=== PATIENT | female | born 1990 | race Caucasian/White ===

== ENCOUNTER 2017-01-27 09:50 | Inpatient (IN) | payer OTHER ==
[~2017-01-27 09:50] MED LIST: CITRIC ACID/SODIUM CITRATE 30 ML UNIT-DOSE CUP PO ONE; ELECTROLYTE-148 SOLN 1,000 ML IV ONE
[2017-01-27 10:48] VITALS: BMI 35.1
[2017-01-27] MEDS ORDERED: CITRIC ACID/SODIUM CITRATE 30 ML UNIT-DOSE CUP PO ONE (10:54)
--- NOTE | 2017-01-27 10:54 | HP ---
Admitting History and Physical - Admission Chief Complaint: breech History of Present Illness: 26 y/o with breech presentation for cs History Source: Patient Limitations to Obtaining History: No Limitations - Past Medical History FLIGHT AGENT: No: Alzheimer's, CVA, Dementia, Migraine, Multiple Sclerosis, Peripheral Neuropathy, Parkinson's, Seizure, Syncope, TIA, Vertigo, Other Cardiovascular: No: AFIB, Aneurysm, Aortic Insufficiency, Aortic Stenosis, CAD, CHF, Deep Vein Thrombosis, HTN, Hyperlipdemia, KS, Mitral Insufficiency, Mitral Stenosis, Murmur, Pulmonary Hypertension, Other Pulmonary: No: Asthma, Bronchitis, Cancer, COPD, O2 Dependent, Pneumonia, Previously Intubated, Pulmonary Embolus, Pulmonary Fibrosis, Sleep Apnea, Other Gastrointestinal: No: Ascites, Cancer, Constipation, Crohn's Disease, Diverticulitis, Diverticulosis, Esophageal Varices, Gastritis, GERD, GI Bleed, Hemorrhoids, Hiatal Hernia, Inflamatory Bowel Disease, Irritable Bowel Disease, Pancreatitis, Peptic Ulcer Disease, Ulcerative Colitis, Other Hepatobiliary: No: Cirrhosis, Cholelithiasis, Cholecystitis, Choledocholithiasis , Hepatitis A, Hepatitis B, Hepatitis C, Other Renal/: No: Renal Failure, Renal Inusuff, BPH, Cancer, Hematuria, Hemodialysis , Neurogenic Bladder, Renal Calculi, UTI, Other Reproductive: No: Ectopic , Endometriosis, Fibroids, PID, Polycystic Ovary Syndrome, Postmenopausal, Other ...: 3 ...Para: 1 Heme/Onc: No: Anemia, B12 Deficiency, Bleeding Disorder, Cancer, Current Chemotherapy, Current Radiation Therapy, Hemochromatosis, Hypercoaguable State, Myeloproliferative Synd, Sickle Cell Disease, Sickle Cell Trait, Thrombocytopenia, Other Psych: No: Addictions, Anxiety, Bipolar, Depression, Panic, Psychosis, Schizophrenia, Other Musculoskeletal: No: Bursitis, Chronic low back pain, Hemiparesis, Hemiplegia, Osteoarthritis, Paraplegia, Other Rheumatology: No: Fibromyalgia, Gout, Lupus, Rheumatoid Arthritis, Sarcoidosis, Vasculitis, Other ENT: No: Allergic Rhinitis, Sinusitis, Other Endocrine: No: Roseboom's Disease, Tyrell's Disease, Diabetes Insipidus, Diabetes Mellitus, Hyperparathyroidism, Hyperthyroidism, Hypothyroidism, Osteopenia, SIADH, Other - Past Surgical History Past Surgical History: No: None, AAA Repair, AICD, Amputation, Appendectomy, Arthrosocopy, AV Fistula/Graft, Bariatric Surgery, Breast Biopsy, Bypass, CABG, Carotid Endarterectomy, Cataract Removal, Cholecystectomy, Colectomy, Colonoscopy, Colostomy, Craniotomy, , Cystectomy, Hernia Repair, Hysterectomy, Ileal Conduit, Ileosotomy, Joint Replacement, Kidney Transplant, Laminectomy, Liver Transplant, Mastectomy, Nephrectomy, Oopherectomy, Orchiectomy, Permanent Pacemaker, Prostatectomy, Splenectomy, Stent, Thoracotomy , TURP, Tonsillectomy, Tubal Ligation, Upper Endoscopy, Valve Replacement, Vasectomy, Vein Stripping/Ligation - Advance Directives Advance Directives: No: Living Will, Health Care Proxy, DNR, Organ Donor, Tissue Donor, MOLST - Smoking History Smoking history: Never smoked Have you smoked in the past 12 months: No Aproximately how many cigarettes per day: 0 - Alcohol/Substance Use Hx Alcohol Use: No History of Substance Use: denies: None, Cocaine, Heroin, Marijuana, Prescription , Tranquilizers - Social History Usual Living Arrangement: No: Alone, With Spouse, With Parent, With Significant Other, With Child, Assisted Living, [facility], Other Home Medications - Allergies Allergies/Adverse Reactions: Allergies Allergy/AdvReac Type Severity Reaction Status Date / Time No Known Allergies Allergy Verified 01/27/17 10:25 - Home Medications Home Medications: Ambulatory Orders Vit No.130/Iron/FA [ Vitamins] 1 each PO DAILY 11/13/16 Review of Systems - Review of Systems Constitutional: reports: No Symptoms Eyes: reports: No Symptoms HENT: reports: No Symptoms Neck: reports: No Symptoms Cardiovascular: reports: No Symptoms Respiratory: reports: No Symptoms Gastrointestinal: reports: No Symptoms Genitourinary: reports: No Symptoms Breasts: reports: No Symptoms Reported Musculoskeletal: reports: No Symptoms Integumentary: reports: No Symptoms Neurological: reports: No Symptoms Endocrine: reports: No Symptoms Hematology/Lymphatic: reports: No Symptoms Psychiatric: reports: No Symptoms Physical Examination Vital Signs: Vital Signs Temperature 98.0 F 01/27/17 10:39 Pulse Rate 99 H 01/27/17 10:39 Respiratory Rate 18 01/27/17 10:39 Blood Pressure 117/71 01/27/17 10:39 O2 Sat by Pulse Oximetry (%) Constitutional: Yes: Well Nourished Eyes: Yes: WNL HENT: Yes: WNL Neck: Yes: WNL Cardiovascular: Yes: WNL, Bruit Respiratory: Yes: WNL Gastrointestinal: Yes: WNL Renal/: Yes: WNL Breast(s): Yes: WNL Musculoskeletal: Yes: WNL Extremities: Yes: WNL Assessment/Plan as above admit consents labs done
[2017-01-27] MEDS ORDERED: ELECTROLYTE-148 SOLN 1,000 ML IV SCH ×2 (11:00)
[2017-01-27] MEDS ORDERED: ONDANSETRON 4 MG/2 ML VIAL IVPB PRN (11:49)
[2017-01-27] MEDS ORDERED: morphine SULFATE/Preservative Free 0.5 MG/ML (1cc Syringe) EP ONE (11:49)
[2017-01-27] MEDS: IBUPROFEN 800 MG/8 ML IJ IVPB PRN ×2 (14:30→22:50)
[2017-01-27] MEDS: OXYTOCIN 20 UNITS in 0.9% NS 1,000 ML IV SCH (18:06)
[2017-01-28] MEDS: OXYTOCIN 20 UNITS in 0.9% NS 1,000 ML IV SCH (02:30)
[2017-01-28] MEDS: ACETAMINOPHEN 325 MG TABLET (FP) PO PRN ×3 (06:15→16:07)
[2017-01-28] MEDS: IBUPROFEN 800 MG/8 ML IJ IVPB PRN (07:45)
--- NOTE | 2017-01-28 09:34 | PN ---
Post Progress Note - Subjective Subjective: no c/o pain not voided yet since perry is taken out Post Day: 1 Type of Delivery: Primary C/S Vital Signs: Vital Signs Temperature 98.1 F 01/28/17 06:00 Pulse Rate 84 01/28/17 06:00 Respiratory Rate 18 01/28/17 08:00 Blood Pressure 106/65 01/28/17 06:00 O2 Sat by Pulse Oximetry (%) 100 01/27/17 15:30 Breast Exam: Yes: Soft, Other (large pendulous breast , not engorged, plans to BF ). No: Engorged Uterus: Yes: Fundus Firm, Fundus below umbilicus, Non-tender Incision: Yes: Dressing dry and intact. No: Redness, Oozing Abdomen/GI: Yes: Abdomen soft (bs active ), Tolerating PO (clear liquids ). No : Abdominal Distention, Tender, Passing flatus Lochia: Yes: Rubra Lochia, amount: Moderate Extremities: Yes: Calves non-tender, Edema Perineum: Yes: Intact Activity: Other (not oob yet ) Other Findings, Remarks: perry out put 800 ml RS cta Assessment/Plan stable. post op cbc pending encourage ambulation, deep breathing, po fluids
--- NOTE | 2017-01-28 10:47 | PN ---
Progress Note (short form) - Note Progress Note: Anesthesia postop note. S/P . POD#1. Pat seen and examined. VSS. No apparent post anesthesia complications. Signed off.
[2017-01-28 15:24] LABS: BASOPHIL 0.4 % (0-2.0); EOSINOPHIL 0.4 % (0-4.5); MCH 29.4 pg (25.7-33.7); MEAN CELL VOLUME 89.2 fl (80-96); NEUTROPHILS 74.5 % (42.8-82.8); PLATELET COUNT 205 K/MM3 (134-434); RDW 14.9 % (11.6-15.6); WHITE BLOOD COUNT 10.6 K/mm3 (4.0-10.0)
[2017-01-28] MEDS: oxyCODONE HCL 5 MG TABLET PO PRN ×2 (16:07→20:25)
[2017-01-28] MEDS: SIMETHICONE 80 MG TAB.CHEW (FP) PO PRN ×2 (16:07→20:22)
[2017-01-28] MEDS: IBUPROFEN 600 MG TABLET (FP) PO PRN (20:22)
[2017-01-29] MEDS: SIMETHICONE 80 MG TAB.CHEW (FP) PO PRN ×4 (05:52→21:11)
[2017-01-29] MEDS: IBUPROFEN 600 MG TABLET (FP) PO PRN ×4 (05:53→21:12)
[2017-01-29] MEDS: ACETAMINOPHEN 325 MG TABLET (FP) PO PRN ×4 (05:53→21:11)
--- NOTE | 2017-01-29 06:35 | PN ---
Post Progress Note Type of Delivery: Primary C/S Vital Signs: Vital Signs Temperature 98.0 F 01/28/17 20:29 Pulse Rate 84 01/28/17 20:29 Respiratory Rate 20 01/28/17 20:29 Blood Pressure 126/75 01/28/17 20:29 O2 Sat by Pulse Oximetry (%) 100 01/27/17 15:30 Breast Exam: Yes: Soft Uterus: Yes: Fundus below umbilicus Incision: Yes: Dressing dry and intact Abdomen/GI: Yes: Abdomen soft Lochia: Yes: Rubra Lochia, amount: Small Extremities: Yes: Calves non-tender Perineum: Yes: Intact Activity: Ambulating - Labs Labs: CBC WBC 10.6 K/mm3 (4.0-10.0) H 01/28/17 14:00 RBC 3.33 M/mm3 (3.60-5.2) L 01/28/17 14:00 Hgb 9.8 GM/dL (10.7-15.3) L D 01/28/17 14:00 Hct 29.8 % (32.4-45.2) L 01/28/17 14:00 MCV 89.2 fl (80-96) 01/28/17 14:00 MCHC 33.0 g/dl (32.0-36.0) 01/28/17 14:00 RDW 14.9 % (11.6-15.6) 01/28/17 14:00 Plt Count 205 K/MM3 (134-434) 01/28/17 14:00 MPV 9.0 fl (7.5-11.1) D 01/28/17 14:00 Neutrophils % 74.5 % (42.8-82.8) 01/28/17 14:00 Lymphocytes % 19.0 % (8-40) D 01/28/17 14:00 Monocytes % 5.7 % (3.8-10.2) 01/28/17 14:00 Eosinophils % 0.4 % (0-4.5) 01/28/17 14:00 Basophils % 0.4 % (0-2.0) 01/28/17 14:00 Assessment/Plan oob desires dc tomorrow check labs
[2017-01-29] MEDS ORDERED: DIPHTH,PERTUSS(ACELL),TET 0.5 ML DISP.SYRIN IM ONE (10:00)
[2017-01-29 21:15] VITALS: BP 118/74; TEMP 98
[2017-01-30] MEDS: SIMETHICONE 80 MG TAB.CHEW (FP) PO PRN ×2 (01:48→08:35)
[2017-01-30] MEDS: ACETAMINOPHEN 325 MG TABLET (FP) PO PRN ×2 (01:48→08:35)
[2017-01-30] MEDS: IBUPROFEN 600 MG TABLET (FP) PO PRN ×2 (01:49→08:36)
[2017-01-30 08:30] LABS: BASOPHIL 0.4 % (0-2.0); EOSINOPHIL 1.6 % (0-4.5); MCH 29.6 pg (25.7-33.7); MCHC 33.4 g/dl (32.0-36.0); MEAN CELL VOLUME 88.8 fl (80-96); MEAN PLT VOLUME 8.1 fl (7.5-11.1); NEUTROPHILS 67.4 % (42.8-82.8); PLATELET COUNT 203 K/MM3 (134-434); RDW 15.1 % (11.6-15.6); WHITE BLOOD COUNT 8.2 K/mm3 (4.0-10.0)
[2017-01-30 09:29] VITALS: PULSE 70
--- NOTE | 2017-01-30 12:03 | PN ---
Progress Note (short form) - Note Progress Note: s/p c/s doing well, no c/o CBC, BMP 01/30/17 07:40 Last Vital Signs Temp Pulse Resp BP Pulse Ox 98.0 F 70 20 118/74 100 01/30/17 09:26 01/30/17 09:26 01/30/17 09:26 01/30/17 09:26 01/27/17 15:30 abdomen soft, no distension, incision dry, clean no calf tenderness plan d/c home, rtc 1 week
--- NOTE | 2017-02-04 13:42 | PATH ---
Surgical Pathology Report Patient Name: PILI BECKWITH [facility]. Rec. #: [id number] /Age/Gender: 1990 (Age: 26) / F Account: [id number] Location: [facility] OBS/FAITH HEALER Taken: 01/28/2017 Received: 01/28/2017 Reported: 02/04/2017 Physicians: Nick Baum M.D. 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 Electronically Signed David Willard M.D. Gross Description The specimen is received fresh labeled placenta and is a 550 gram, 16.5 x 15.0 x 3.4 cm. placenta with attached membranes and umbilical cord. The attached membranes are lemus, translucent with focal opacities and insert marginally. The umbilical cord measures 22 cm. in length and averages 1.2 cm. in diameter. The cord inserts eccentrically, 2.5 cm. to the nearest margin. No true knots or strictures are identified. Cut surface of the umbilical cord reveals 3 vessels. The surface is lawrence blue with moderate fibrin deposition and appropriate caliber vessels. The maternal surface is red-brown with focal defects. Sectioning reveals red-brown, spongy parenchyma. No lesions are identified. Supervisor sections are submitted in three cassettes as follows: 1- membrane rolls and umbilical cord; 2-3- full thickness sections of placenta. 02/03/2017 [facility]02/03/2017
== END 2017-01-30 11:00 | disposition home or self-care (01) | DRG 540 ==
LOC: JLDR 09:50 → J3W 01-28 14:27
PROVIDERS: ADMIT Obstetrics & Gynecology; ATTEND Obstetrics & Gynecology
PROC: 10D00Z1 Extraction of Products of Conception, Low, Open Approach (ICD-10-PCS; principal; 2017-01-27)
DX: O32.1XX0 Maternal care for breech presentation, not applicable or unspecified (principal); Z3A.39 39 weeks gestation of pregnancy; Z37.0 Single live birth
CPT/HCPCS: 36415; 85025; 86593; 88307-TC

== ENCOUNTER 2017-03-16 17:39 | Emergency (ER) | payer OTHER ==
[2017-03-16 17:46] VITALS: BP 109/70; PULSE 96; TEMP 98.5; BMI 31.9
[2017-03-16] MEDS ORDERED: CEPHALEXIN MONOHYDRATE 500 MG CAPSULE (UD) PO ONE (19:31)
[2017-03-16] MEDS ORDERED: IBUPROFEN 600 MG TABLET (FP) PO ONE ×2 (19:31→19:42)
--- NOTE | 2017-03-16 19:35 | PDOC ---
History of Present Illness - General Chief Complaint: Pain Stated Complaint: VAGINAL BLEEDING Time Seen by Provider: 03/16/17 18:53 History Source: Patient Exam Limitations: No Limitations - History of Present Illness Initial Comments: 03/16/17 19:35 My chief complaint: Tenderness and redness along scar from 01/28/2017 History of present illness: Patient is a 26-year-old female with history of iron deficiency anemia here today complaining of tenderness and redness along C- section scar for the last 5 days. Patient had a here on 01/28/2017. Patient denies any fever. Patient reports that area is very tender to touch and is currently a 7 out of 10. Patient denies breast-feeding. Patient saw LOG HAULER one any half weeks ago everything was fine at that time. Timing/Duration: getting worse Severity: mild Associated Symptoms: reports: other (redness along C Section site with tenderness) Past History - Past Medical History Allergies/Adverse Reactions: Allergies Allergy/AdvReac Type Severity Reaction Status Date / Time No Known Allergies Allergy Verified 03/16/17 17:41 Home Medications: Ambulatory Orders Vit No.130/Iron/FA [ Tablet] 1 each PO DAILY 11/13/16 Ibuprofen [Motrin -] 600 mg PO TID #21 tablet 01/29/17 Cephalexin Monohydrate [Keflex -] 500 mg PO BID #19 capsule 03/16/17 Anemia: Yes (iron deficiency ) Asthma: No Cancer: No Cardiac Disorders: No Diabetes: No HTN: No Seizures: No Thyroid Disease: No Other medical history: none - Psycho/Social/Smoking Cessation Hx Anxiety: No Suicidal Ideation: No Smoking Status: No Smoking History: Never smoked Have you smoked in the past 12 months: No Number of Cigarettes Smoked Daily: 0 Information on smoking cessation initiated: No Hx Alcohol Use: No Drug/Substance Use Hx: No Substance Use Type: None Hx Substance Use Treatment: No Review of Systems - Review of Systems Able to Perform ROS?: Yes Constitutional: No: Symptoms Reported HEENTM: No: Symptoms Reported Respiratory: No: Symptoms reported Cardiac (ROS): No: Symptoms Reported ABD/GI: No: Symptoms Reported : No: Symptoms Reported Musculoskeletal: No: Symptoms Reported Integumentary: Yes: Erythema (along C section scar getting worse 5 days with tenderness of area) Neurological: No: Symptoms reported *Physical Exam - Vital Signs Last Vital Signs Temp Pulse Resp BP Pulse Ox 98.5 F 96 H 18 109/70 100 03/16/17 17:42 03/16/17 17:42 03/16/17 17:42 03/16/17 17:42 03/16/17 17:42 - Physical Exam General Appearance: Yes: Appropriately Dressed Respiratory/Chest: positive: Lungs Clear, Normal Breath Sounds. negative: Chest Tender, Respiratory Distress Cardiovascular: positive: Regular Rhythm, Regular Rate, S1, S2 Gastrointestinal/Abdominal: positive: Normal Bowel Sounds, Tender (along left side of C section scar ), Soft. negative: Organomegaly, Increased Bowel Sounds , Distended, Guarding, Rebound, Hernia, Hepatomegaly, Spleenomegaly Integumentary: positive: Erythema (along C section scar 10 cm width x 4 cm, no fluculance, no pointing, no palpable masss, no discharge) Neurologic: positive: Alert, Normal Response, Responsive Medical Decision Making - Medical Decision Making 03/16/17 19:37 Patient is a 26-year-old female with history of iron deficiency anemia here today complaining of tenderness and redness along scar for the last 5 days. Patient had a here on 01/28/2017. Patient denies any fever. Patient reports that area is very tender to touch and is currently a 7 out of 10. Patient denies breast-feeding. Patient saw LOG HAULER one any half weeks ago everything was fine at that time. Cellulitis extending from C section PLAN: consult with Dr. Baum he recommended keflex 500 mg bid for 10 days ibuprofen 600 mg po now follow up with drafter assistant as soon as possible *DC/Admit/Observation/Transfer Diagnosis at time of Disposition: Cellulitis of abdominal wall - Discharge Dispostion Disposition: HOME Condition at time of disposition: Stable - Patient Instructions Additional Instructions: Follow up with your shipping lead person within the next few days Return to emergency room if any fever or increased redness of area on your abdomen involved or chills worsening pain Take ibuprofen as needed as directed by planning intern for pain Patient voiced understanding of discharge instructions and all questions were answered Antonia un seguimiento con gavin gineclogo en los prximos dobson Vuelva a la juan jose de emergencias si hay fiebre o aumento del enrojecimiento del lalito del abdomen o escalofros que empeoran el dolor [place] ibuprofeno segn sea necesario segn las instrucciones del fabricante para el dolor Comprensin del paciente sobre las instrucciones de jerry y todas las preguntas fueron contestadas
[2017-03-16] MEDS ORDERED: CEPHALEXIN MONOHYDRATE 500 MG CAPSULE (UD) ONE (19:43)
== END 2017-03-16 20:18 | disposition home or self-care (01) ==
LOC: JERFT 17:39
DX: O86.0 Infection of obstetric surgical wound (principal)
CPT/HCPCS: 99281-25

== ENCOUNTER → 2017-03-17 | Emergency (ER) | payer OTHER ==
[~2017-03-17] MED LIST changes: -CITRIC ACID/SODIUM CITRATE 30 ML UNIT-DOSE CUP PO ONE; -ELECTROLYTE-148 SOLN 1,000 ML IV ONE; +ONDANSETRON 4 MG/2 ML VIAL IVPB ONE; +ONDANSETRON 4 MG/2 ML VIAL ONE; +PIPERACILLIN/TAZOB 3.375 GM 50 ML IVPB ONE; +PIPERACILLIN/TAZOB 3.375 GM/50 ML PRE-DOCKED IV ONE; +morphine CARPU-JECT 4 MG/1 ML DISP.SYRIN IVPUSH ONE; +morphine CARPU-JECT 4 MG/1 ML DISP.SYRIN ONE
[2017-03-17 17:58] VITALS: TEMP 98.5; BMI 31.9
[2017-03-17 19:16] LABS: BASOPHIL 0.2 % (0-2.0); MCH 27.6 pg (25.7-33.7); MCHC 32.4 g/dl (32.0-36.0); MEAN CELL VOLUME 85.2 fl (80-96); MEAN PLT VOLUME 7.8 fl (7.5-11.1); NEUTROPHILS 78.5 % (42.8-82.8); PLATELET COUNT 208 K/MM3 (134-434); RDW 15.1 % (11.6-15.6); WHITE BLOOD COUNT 13.2 K/mm3 (4.0-10.0)
[2017-03-17 19:29] LABS: INR 1.16 (0.82-1.09); PROTHROMBIN TIME (PATIENT) 12.8 SEC (9.98-11.88)
[2017-03-17 19:32] LABS: ACTIVATED PTT 33.4 SECONDS (26.9-34.4)
[2017-03-17 19:40] LABS: ALBUMIN 3.7 g/dl (3.4-5.0); ANION GAP 10 (8-16); BILIRUBIN,TOTAL 0.3 mg/dL (0.2-1.0); CALCIUM 9.1 mg/dL (8.5-10.1); CO2 25 mmol/L (21-32); CREATININE 0.6 mg/dL (0.55-1.02); GLUCOSE,RANDOM 80 mg/dL (74-106); SGOT/AST 28 U/L (15-37); SGPT/ALT 51 U/L (12-78); TOT PROT 7.5 g/dl (6.4-8.2)
[2017-03-17 19:42] LABS: ALK PHOS 113 U/L (45-117); TROPONIN I < 0.02 ng/ml (0.00-0.05)
--- NOTE | 2017-03-17 19:48 | PDOC ---
*Physical Exam - Vital Signs Last Vital Signs Temp Pulse Resp BP Pulse Ox 98.5 F 98 H 19 122/63 98 03/17/17 17:56 03/17/17 17:56 03/17/17 17:56 03/17/17 17:56 03/17/17 17:56 ED Treatment Course - LABORATORY CBC & Chemistry Diagram: 03/17/17 18:49 03/17/17 18:49 - ADDITIONAL ORDERS Additional order review: Laboratory Results 03/17/17 18:49 INR 1.16 H PTT (Actin FS) 33.4 03/17/17 18:49 RBC 4.10 D MCV 85.2 MCHC 32.4 RDW 15.1 MPV 7.8 Neutrophils % 78.5 Lymphocytes % 15.6 D Monocytes % 4.7 Eosinophils % 1.0 Basophils % 0.2 Medical Decision Making - Medical Decision Making 03/17/17 19:44 agree with care from MATHEMATICAL STATISTICIAN Rigo *DC/Admit/Observation/Transfer Diagnosis at time of Disposition: Cellulitis of abdominal wall - Discharge Dispostion Disposition: HOME - Prescriptions Prescriptions: Bacitracin - [Bacitracin Topical Ointment -] 1 applic TP BID #1 tube Clindamycin [Cleocin -] 300 mg PO Q6HPO #40 capsule Oxycodone HCl/Acetaminophen [Oxycodone-Acetaminophen 5-325] 1 each PO Q4H PRN # 12 tablet MDD 6 tabs PRN Reason: Severe Pain - Patient Instructions Printed Discharge Instructions: DI for Wound Infection Additional Instructions: Antonia un seguimiento con gavin obstetra / gineclogo que realiz la seccin C para la re-evaluacin para asegurarse de que la infeccin est mejorando. Si los s ntomas empeoran o si cualquier preocupacin regresa para dahlia evaluacin posterior. Percocet para el dolor segn sea necesario. No conduzca, goran alcohol ni opere maquinaria pesada mientras est tomando Percocet. Clindamicina para la infeccin. Limpie el lalito con agua tibia de jabn, aplique bacitracina y luego gasifique con cinta adhesiva. Usted puede comprar estos artculos en la farmacia local. Usted debe seguir con OB / [facility]ER dentro de 48-72 horas. Si usted desarrolla fiebre, dificultad para respirar, escalofros, dolor creciente regresa de inmediato. Follow up with your COLLEGE OR UNIVERSITY FACULTY MEMBER that performed for re-evaluation to make sure infection is getting better. If symptoms worsen or any concerns return for further evaluation. Percocet for pain as needed. Do not drive, drink alcohol, or operate heavy machinery while taking Percocet. Clindamycin for infection. Clean area with warm soap water, apply bacitracin and then gauze with tape. You can buy these items at local pharmacy. You must follow up with COLLEGE OR UNIVERSITY FACULTY MEMBER within 48- 72 hours. If you develop fever, trouble breathing, chills, increasing pain return right away. No tome estos medicamentos mientras amamanta. Asegrese de bombear antes de bala los medicamentos. Do not take these medications while . Be sure to pump prior to taking medications. Print Language: KAZAKH - Post Discharge Activity Work/School Note: Back to Work
[2017-03-17 20:43] LABS: URINE APPEARANCE CLEAR; URINE BILIRUBIN NEGATIVE (NEGATIVE); URINE BLOOD NEGATIVE (NEGATIVE); URINE COLOR STRAW; URINE GLUCOSE (UA) NEGATIVE (NEGATIVE); URINE KETONE NEGATIVE (NEGATIVE); URINE LEUK ESTERASE NEGATIVE (NEGATIVE); URINE NITRITE NEGATIVE (NEGATIVE); URINE PROTEIN NEGATIVE (NEGATIVE); URINE UROBILINOGEN NEGATIVE E.U./dl (0.2-1.0)
--- NOTE | 2017-03-17 22:03 | PDOC ---
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 Patient reports done 2 months ago and has been taking care of site. However, recently began experiencing pain, redness, drainage. She denies any other complaints at this time. Timing/Duration: getting worse Severity: moderate Modifying Factors: worse with: cold therapy, eating, immobilization, medication , movement, rest, other Associated Symptoms: denies: denies symptoms, chest pain, cough, diaphoresis, fever/chills, headaches, loss of appetite, malaise, nausea/vomiting, rash, seizure, shortness of breath, syncope, weakness, other Past History - Travel Traveled outside of the country in the last 30 days: No Close contact w/someone who was outside of country & ill: No - Past Medical History Allergies/Adverse Reactions: Allergies Allergy/AdvReac Type Severity Reaction Status Date / Time No Known Allergies Allergy Verified 03/17/17 17:59 Home Medications: Ambulatory Orders Bacitracin - [Bacitracin Topical Ointment -] 1 applic TP BID #1 tube 03/17/17 Cephalexin [Keflex] 500 mg PO BID 03/17/17 Clindamycin [Cleocin -] 300 mg PO Q6HPO #40 capsule 03/17/17 Oxycodone HCl/Acetaminophen [Oxycodone-Acetaminophen 5-325] 1 each PO Q4H PRN # 12 tablet MDD 6 tabs 03/17/17 Anemia: Yes (iron deficiency ) Asthma: No Cancer: No Cardiac Disorders: No Diabetes: No HTN: No Seizures: No Thyroid Disease: No - Psycho/Social/Smoking Cessation Hx Anxiety: No Suicidal Ideation: No Smoking Status: No Smoking History: Never smoked Have you smoked in the past 12 months: No Number of Cigarettes Smoked Daily: 0 Hx Alcohol Use: No Drug/Substance Use Hx: No Substance Use Type: None Hx Substance Use Treatment: No Review of Systems - Review of Systems Able to Perform ROS?: Yes Is the patient limited Tajik proficient: No Constitutional: No: Chills, Fever Integumentary: Yes: Erythema, Other (Pain, Tenderness, drainage) All Other Systems: Reviewed and Negative *Physical Exam - Vital Signs Last Vital Signs Temp Pulse Resp BP Pulse Ox 98.5 F 98 H 19 122/63 98 03/17/17 17:56 03/17/17 17:56 03/17/17 17:56 03/17/17 17:56 03/17/17 17:56 - Physical Exam General Appearance: Yes: Nourished, Appropriately Dressed, Mild Distress (On examination). No: Apparent Distress, Moderate Distress, Severe Distress Neck: positive: Trachea midline, Supple. negative: Decreased range of motion, Stridor, Lymphadenopathy (R), Lymphadenopathy (L) Respiratory/Chest: positive: Lungs Clear, Normal Breath Sounds. negative: Chest Tender, Respiratory Distress, Accessory Muscle Use, Labored Respiration, Rapid RR, Rales, Rhonchi, Stridor, Wheezing Cardiovascular: positive: Regular Rhythm, Regular Rate Gastrointestinal/Abdominal: positive: Normal Bowel Sounds, Tender (At site of infection), Soft. negative: Distended, Guarding, Rebound, Tenderness, Hernia Musculoskeletal: positive: Normal Inspection. negative: CVA Tenderness Extremity: positive: Normal Capillary Refill, Normal Inspection, Normal Range of Motion. negative: Pedal Edema, Swelling, Calf Tenderness, Erythema, Inflammation Integumentary: positive: Normal Color, Dry, Warm, Erythema, Swelling (Mild ), Other (+ Tenderness with active drainage of purulent fluid.). 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 II-XII NML intact, Fully Oriented, Alert, Normal Mood/ Affect, Normal Response, Motor Strength /5 ED Treatment Course - LABORATORY CBC & Chemistry Diagram: 03/17/17 18:49 03/17/17 18:49 - ADDITIONAL ORDERS Additional order review: Laboratory Results 03/17/17 03/17/17 03/17/17 20:27 18:57 18:49 INR PTT (Actin FS) Sodium Potassium Chloride Carbon Dioxide Anion Gap BUN Creatinine Creat Clearance w eGFR Random Glucose Lactic Acid 0.6 Calcium Total Bilirubin AST ALT Alkaline Phosphatase Creatine Kinase Troponin I Total Protein Albumin Urine Color Straw Urine Appearance Clear Urine pH 6.0 Urine Protein Negative Urine Glucose (UA) Negative Urine Ketones Negative Urine Blood Negative Urine Nitrite Negative Urine Bilirubin Negative Urine Urobilinogen Negative Ur Leukocyte Esterase Negative Blood Type A POSITIVE Antibody Screen Negative 03/17/17 03/17/17 18:49 18:49 INR 1.16 H PTT (Actin FS) 33.4 Sodium 140 Potassium 3.7 Chloride 105 Carbon Dioxide 25 Anion Gap 10 BUN 18 D Creatinine 0.6 Creat Clearance w eGFR > 60 Random Glucose 80 Lactic Acid Calcium 9.1 Total Bilirubin 0.3 D AST 28 D ALT 51 D Alkaline Phosphatase 113 D Creatine Kinase 94 Troponin I < 0.02 Total Protein 7.5 Albumin 3.7 D Urine Color Urine Appearance Urine pH Urine Protein Urine Glucose (UA) Urine Ketones Urine Blood Urine Nitrite Urine Bilirubin Urine Urobilinogen Ur Leukocyte Esterase Blood Type Antibody Screen 03/17/17 18:49 RBC 4.10 D MCV 85.2 MCHC 32.4 RDW 15.1 MPV 7.8 Neutrophils % 78.5 Lymphocytes % 15.6 D Monocytes % 4.7 Eosinophils % 1.0 Basophils % 0.2 - Medications Given in the ED: ED Medications Discontinued Medications Generic Name Dose Route Start Last Admin Trade Name Freq PRN Reason Stop Dose Admin Morphine Sulfate 4 mg 03/17/17 19:39 03/17/17 20:20 Morphine Injection - IVPUSH 03/17/17 19:40 4 mg ONCE ONE Administration Ondansetron HCl 4 mg 03/17/17 19:39 03/17/17 20:20 Zofran Injection IVPB 03/17/17 19:40 4 mg ONCE ONE Administration Piperacillin Sod/Tazobactam Sod 3.375 gm 03/17/17 19:46 03/17/17 20:20 Zosyn 3.375gm Ivpb (Pre-Docked) IV 03/17/17 19:47 3.375 gm ONCE ONE Administration Protocol *DC/Admit/Observation/Transfer Diagnosis at time of Disposition: Cellulitis of abdominal wall - Discharge Dispostion Disposition: HOME Condition at time of disposition: Stable Admit: No - Prescriptions Prescriptions: Bacitracin - [Bacitracin Topical Ointment -] 1 applic TP BID #1 tube Clindamycin [Cleocin -] 300 mg PO Q6HPO #40 capsule Oxycodone HCl/Acetaminophen [Oxycodone-Acetaminophen 5-325] 1 each PO Q4H PRN # 12 tablet MDD 6 tabs PRN Reason: Severe Pain - Patient Instructions Printed Discharge Instructions: DI for Wound Infection Additional Instructions: Antonia un seguimiento con gavin obstetra / gineclogo que realiz la seccin C para la re-evaluacin para asegurarse de que la infeccin est mejorando. Si los s ntomas empeoran o si cualquier preocupacin regresa para dahlia evaluacin posterior. Percocet para el dolor segn sea necesario. No conduzca, goran alcohol ni opere maquinaria pesada mientras est tomando Percocet. Clindamicina para la infeccin. Limpie el lalito con agua tibia de jabn, aplique bacitracina y luego gasifique con cinta adhesiva. Usted puede comprar estos artculos en la farmacia local. Usted debe seguir con OB / CAN WASHER dentro de 48-72 horas. Si usted desarrolla fiebre, dificultad para respirar, escalofros, dolor creciente regresa de inmediato. Follow up with your SYNCHRONIZER that performed for re-evaluation to make sure infection is getting better. If symptoms worsen or any concerns return for further evaluation. Percocet for pain as needed. Do not drive, drink alcohol, or operate heavy machinery while taking Percocet. Clindamycin for infection. Clean area with warm soap water, apply bacitracin and then gauze with tape. You can buy these items at local pharmacy. You must follow up with SYNCHRONIZER within 48- 72 hours. If you develop fever, trouble breathing, chills, increasing pain return right away. No tome estos medicamentos mientras amamanta. Asegrese de bombear antes de bala los medicamentos. Do not take these medications while . Be sure to pump prior to taking medications. Print Language: AZERI - Post Discharge Activity Work/School Note: Back to Work
[2017-03-17 22:51] VITALS: BP 101/71; PULSE 85
--- NOTE | 2017-03-18 10:43 | EKG ---
Test Reason : Blood Pressure : / mmHG Vent. Rate : 084 BPM Atrial Rate : 084 BPM P-R Int : 166 ms QRS Dur : 086 ms QT Int : 364 ms P-R-T Axes : 042 064 042 degrees QTc Int : 430 ms NORMAL SINUS RHYTHM NORMAL ECG NO PREVIOUS ECGS AVAILABLE Confirmed by KIA BUTLER, SAMIR ([id number]) on 03/18/2017 10:42:45 AM Referred By: Confirmed By:SAMIR ADAM MD
== END | disposition home or self-care (01) ==
LOC: JER 17:49
PROC: 3E03329 Introduction of Other Anti-infective into Peripheral Vein, Percutaneous Approach (ICD-10-PCS; principal; 2017-03-17)
PROC: 3E033GC Introduction of Other Therapeutic Substance into Peripheral Vein, Percutaneous Approach (ICD-10-PCS; 2017-03-17)
PROC: 3E033NZ Introduction of Analgesics, Hypnotics, Sedatives into Peripheral Vein, Percutaneous Approach (ICD-10-PCS; 2017-03-17)
DX: O86.0 Infection of obstetric surgical wound (principal); L03.311 Cellulitis of abdominal wall
CPT/HCPCS: 36415; 71010-TC; 80053; 81003; 82550; 83605; 84484; 85025; 85610; 85730; 86850; 86900; 86901; 87040; 87070; 87086; 87186; 87205; 93005; 93010; 96374; 96375; 99283-25

== ENCOUNTER 2021-01-02 14:59 | Emergency (ER) | payer OTHER ==
[2021-01-02 15:23] VITALS: BP 111/72; PULSE 72; TEMP 97.2; BMI 32.1
[2021-01-02 16:52] LABS: BASO % 0.7 % (0-2.0); EOS % 2.5 % (0-4.5); LYMPH % 33.2 % (8-40); MCH 30.2 pg (25.7-33.7); MCHC 33.4 g/dl (32.0-36.0); MEAN CELL VOLUME 90.2 fl (80-96); MEAN PLT VOLUME 8.6 fl (7.5-11.1); MONO % 7.4 % (3.8-10.2); NEUT % 56.2 % (42.8-82.8); PLATELET COUNT 216 K/MM3 (134-434); RBC 3.99 M/mm3 (3.60-5.2); RDW 13.1 % (11.6-15.6); WHITE BLOOD COUNT 7.6 K/mm3 (4.0-10.0)
[2021-01-02 17:09] LABS: CHLORIDE 106 mmol/L (98-107); SODIUM 140 mmol/L (136-145)
[2021-01-02 17:12] LABS: ALBUMIN 3.8 g/dl (3.4-5.0); ANION GAP 7 MMOL/L (8-16); BLOOD UREA NITROGEN 11.4 mg/dL (7-18); CO2 27 mmol/L (21-32); GLUCOSE,RANDOM 70 mg/dL (74-106); LIPASE 84 U/L (73-393)
[2021-01-02 17:15] LABS: CREATININE 0.7 mg/dL (0.55-1.3); SGOT/AST 21 U/L (15-37); SGPT/ALT 31 U/L (13-61)
[2021-01-02 17:16] LABS: BILIRUBIN,TOTAL 0.2 mg/dL (0.2-1)
[2021-01-02 17:17] LABS: TOT PROT 7.4 g/dl (6.4-8.2)
[2021-01-02 17:18] LABS: ALK PHOS 103 U/L (45-117)
[2021-01-02 17:33] LABS: PH,URINE 6.5 (5.0-8.0); URINE APPEARANCE CLEAR; URINE BILIRUBIN NEGATIVE (NEGATIVE); URINE COLOR YELLOW; URINE GLUCOSE (UA) NEGATIVE (NEGATIVE); URINE KETONE NEGATIVE (NEGATIVE); URINE LEUK ESTERASE NEGATIVE (NEGATIVE); URINE NITRITE NEGATIVE (NEGATIVE); URINE PROTEIN NEGATIVE (NEGATIVE); URINE UROBILINOGEN 0.2 mg/dL (0.2-1.0)
[2021-01-02] MEDS ORDERED: MAG HYDROX/AL HYDROX/SIMETH -MYLANTA- ORAL SUSPENSION PO ONE (18:23)
[2021-01-02] MEDS ORDERED: FAMOTIDINE 20 MG TABLET PO ONE (18:23)
[2021-01-02] MEDS ORDERED: MAG HYDROX/AL HYDROX/SIMETH 30 ML UNIT-DOSE CUP ONE (18:34)
[2021-01-02] MEDS ORDERED: FAMOTIDINE 20 MG TABLET ONE (18:34)
== END 2021-01-02 18:59 | disposition home or self-care (01) ==
LOC: JER 14:59
DX: R10.30 Lower abdominal pain, unspecified (principal)
CPT/HCPCS: 36415; 74177-TC; 80053; 81003; 83690; 84702; 85025; 87086; 99285-25; Q9967

== ENCOUNTER 2024-03-17 10:23 | Emergency (ER) | payer OTHER ==
[2024-03-17 10:36] VITALS: BMI 28.8
[2024-03-17] MEDS: LACTATED RINGERS SOLUTION 1000 ML INFUS.BAG IV ONE ×2 (11:22→13:50)
[2024-03-17 11:39] LABS: INR 1.02 (0.83-1.09); PROTHROMBIN TIME (PATIENT) 11.5 SEC (9.7-13.0)
[2024-03-17 11:42] LABS: ACTIVATED PTT 26.3 SECONDS (25.2-36.5); BASO % 0.4 % (0-2.0); EOS % 0.4 % (0-4.5); HEMATOCRIT 27.1 % (32.4-45.2); LYMPH % 26.6 % (8-40); MCH 27.4 pg (25.7-33.7); MCHC 33.3 g/dl (32.0-36.0); MEAN CELL VOLUME 82.5 fl (80-96); MEAN PLT VOLUME 7.6 fl (7.5-11.1); MONO % 6.9 % (3.8-10.2); NEUT % 65.7 % (42.8-82.8); PLATELET COUNT 270 10^3/uL (134-434); RBC 3.28 M/mm3 (3.60-5.2); RDW 14.4 % (11.6-15.6); WHITE BLOOD COUNT 6.5 K/mm3 (4.0-10.0)
[2024-03-17 11:49] LABS: POTASSIUM 3.7 mmol/L (3.5-5.1)
[2024-03-17 11:51] LABS: ALBUMIN 2.8 g/dl (3.4-5.0); BLOOD UREA NITROGEN 6.4 mg/dL (7-18); CALCIUM 8.8 mg/dL (8.5-10.1)
[2024-03-17 11:54] LABS: CREATININE 0.5 mg/dL (0.55-1.3)
[2024-03-17 11:56] LABS: BILIRUBIN,TOTAL 0.3 mg/dL (0.2-1); TOT PROT 6.5 g/dl (6.4-8.2)
[2024-03-17] MEDS ORDERED: ONDANSETRON 4 MG/2 ML VIAL ONE (12:40)
[2024-03-17] MEDS: ONDANSETRON 4 MG/2 ML VIAL IVPUSH ONE (12:45)
[2024-03-17 13:05] LABS: URINE APPEARANCE CLEAR; URINE BILIRUBIN NEGATIVE (NEGATIVE); URINE COLOR YELLOW; URINE GLUCOSE (UA) NEGATIVE (NEGATIVE); URINE KETONE 1+ (NEGATIVE); URINE LEUK ESTERASE NEGATIVE (NEGATIVE); URINE NITRITE NEGATIVE (NEGATIVE); URINE PROTEIN NEGATIVE (NEGATIVE)
[2024-03-17 15:08] VITALS: BP 103/61; PULSE 93; RESP 18; TEMP 98.4
== END 2024-03-17 15:20 | disposition home or self-care (01) ==
LOC: JER 10:23
PROC: 3E033GC Introduction of Other Therapeutic Substance into Peripheral Vein, Percutaneous Approach (ICD-10-PCS; principal; 2024-03-17)
DX: O98.513 Other viral diseases complicating pregnancy, third trimester (principal); U07.1 COVID-19; O99.891 Other specified diseases and conditions complicating pregnancy; R20.0 Anesthesia of skin; R06.02 Shortness of breath; R07.2 Precordial pain; M54.50 Low back pain, unspecified; R51.9 Headache, unspecified; R00.0 Tachycardia, unspecified; O26.893 Other specified pregnancy related conditions, third trimester; R10.32 Left lower quadrant pain; Z3A.30 30 weeks gestation of pregnancy
CPT/HCPCS: 0241U-QW; 36415; 70450-TC; 71275-TC; 76815-TC; 80053; 81003; 84484; 85025; 85379; 85610; 85730; 86850; 86900; 86901; 87086; 93005; 93010; 93970-TC; 99285-25; Q9967

== ENCOUNTER 2024-05-13 06:00 | Inpatient (IN) | payer OTHER ==
[2024-05-13] MEDS: ELECTROLYTE-148 SOLN 500 ML IV ONE ×2 (06:20→07:00)
[2024-05-13 06:32] VITALS: BMI 30.9
[2024-05-13] MEDS: CITRIC ACID/SODIUM CITRATE 30 ML UNIT-DOSE CUP PO ONE (07:35)
[2024-05-13] MEDS ORDERED: LIGASURE IMPACT TP ONE (07:48)
[2024-05-13] MEDS ORDERED: morphine SULFATE/PF 1 MG/2 ML (2cc Syringe - QUVA) ONE (08:03)
[2024-05-13] MEDS ORDERED: FENTANYL CITRATE/PF 50 MCG/ML VIAL ONE (08:03)
[2024-05-13] MEDS ORDERED: DEXAMETHASONE SOD PHOSPHATE 4 MG/1 ML VIAL ONE (08:15)
[2024-05-13] MEDS ORDERED: ceFAZolin SODIUM 1 GM VIAL ONE ×2 (08:15→08:16)
[2024-05-13] MEDS ORDERED: ONDANSETRON 4 MG/2 ML VIAL ONE ×2 (08:15)
[2024-05-13] MEDS ORDERED: OXYTOCIN 10 UNITS/ML VIAL ONE ×3 (08:25)
[2024-05-13] MEDS ORDERED: ONDANSETRON 4 MG/2 ML VIAL IVPUSH PRN (09:30)
[2024-05-13] MEDS: OXYTOCIN 20 UNITS in 0.9% NS 20 UNIT/1,000 ML INFUS.BAG IV SCH (10:06)
[2024-05-13] MEDS ORDERED: OXYTOCIN 20 UNITS in 0.9% NS 20 UNIT/1,000 ML INFUS.BAG IV ONE (10:24)
[2024-05-13] MEDS: IBUPROFEN 800 MG/8 ML IJ IVPB PRN (14:51)
[2024-05-13] MEDS: ACETAMINOPHEN 325 MG TABLET (FP) PO PRN (19:48)
[2024-05-13] MEDS: SIMETHICONE 80 MG TAB.CHEW (FP) PO PRN (19:48)
[2024-05-14 08:12] LABS: BASO % 0.2 % (0-2.0); EOS % 0.4 % (0-4.5); HEMATOCRIT 21.6 % (32.4-45.2); LYMPH % 16.2 % (8-40); MCH 24.8 pg (25.7-33.7); MCHC 31.9 g/dl (32.0-36.0); MEAN CELL VOLUME 77.5 fl (80-96); MEAN PLT VOLUME 8.4 fl (7.5-11.1); NEUT % 77.2 % (42.8-82.8); PLATELET COUNT 194 10^3/uL (134-434); RBC 2.78 M/mm3 (3.60-5.2); RDW 16.7 % (11.6-15.6); WHITE BLOOD COUNT 9.1 K/mm3 (4.0-10.0)
[2024-05-14 08:33] LABS: HEMOGLOBIN 6.9 GM/dL (10.7-15.3)
[2024-05-14] MEDS ORDERED: BISACODYL 10 MG SUPP.RECT RC PRN (08:55)
[2024-05-14] MEDS: IRON SUCROSE INJECTION 200 MG in SODIUM CHLORIDE 100 ML IVPB ONE (12:28)
[2024-05-14] MEDS: IBUPROFEN 600 MG TABLET (FP) PO PRN (17:25)
[2024-05-14] MEDS: ELECTROLYTE-148 SOLN 1,000 ML IV SCH ×2 (20:20)
[2024-05-14] MEDS: oxyCODONE HCL 5 MG TABLET PO PRN (21:54)
[2024-05-15 01:16] VITALS: RESP 18
[2024-05-16 07:25] LABS: BASO % 0.6 % (0-2.0); EOS % 1.3 % (0-4.5); HEMATOCRIT 21.8 % (32.4-45.2); LYMPH % 26.1 % (8-40); MCH 24.9 pg (25.7-33.7); MCHC 31.6 g/dl (32.0-36.0); MEAN CELL VOLUME 78.6 fl (80-96); MEAN PLT VOLUME 7.7 fl (7.5-11.1); MONO % 6.9 % (3.8-10.2); NEUT % 65.1 % (42.8-82.8); PLATELET COUNT 223 10^3/uL (134-434); RBC 2.77 M/mm3 (3.60-5.2); RDW 16.6 % (11.6-15.6)
[2024-05-16 07:31] LABS: HEMOGLOBIN 6.9 GM/dL (10.7-15.3)
[2024-05-16 12:16] VITALS: BP 113/72; PULSE 99; TEMP 98.8
== END 2024-05-16 12:05 | disposition home or self-care (01) | DRG 540 ==
LOC: JLDR 06:00 → J3W 11:15
PROVIDERS: ADMIT Student in an Organized Health Care Education/Training Program; ATTEND Student in an Organized Health Care Education/Training Program
PROC: 10D00Z1 Extraction of Products of Conception, Low, Open Approach (ICD-10-PCS; principal; 2024-05-13)
PROC: 0UT70ZZ Resection of Bilateral Fallopian Tubes, Open Approach (ICD-10-PCS; 2024-05-13)
DX: O34.219 Maternal care for unspecified type scar from previous cesarean delivery (principal); Z3A.39 39 weeks gestation of pregnancy; Z37.0 Single live birth; Z30.2 Encounter for sterilization
CPT/HCPCS: 36415; 59409; 80053; 81003; 85025; 85610; 86780; 86850; 86900; 86901; 88305-TC; 88307-TC; 94010; J1756

== ENCOUNTER 2024-11-02 10:19 | Emergency (ER) | payer OTHER ==
[2024-11-02 10:37] VITALS: BP 109/67; PULSE 80; RESP 18; TEMP 98.8; BMI 34.9
[2024-11-02 11:40] LABS: HCG,QUALITATIVE URINE Negative
[2024-11-02] MEDS ORDERED: METHOCARBAMOL 500 MG TABLET ONE ×2 (11:45→11:46)
[2024-11-02] MEDS ORDERED: ACETAMINOPHEN 500 MG TABLET (FP) ONE (11:46)
[2024-11-02] MEDS ORDERED: KETOROLAC TROMETHAMINE 30 MG/1 ML VIAL ONE (11:46)
[2024-11-02] MEDS: METHOCARBAMOL 500 MG TABLET PO ONE (11:51)
[2024-11-02] MEDS: KETOROLAC TROMETHAMINE 30 MG/1 ML VIAL IM ONE (11:51)
[2024-11-02] MEDS: ACETAMINOPHEN 500 MG TABLET (FP) PO ONE (11:51)
[2024-11-02 11:55] LABS: EPI CELLS 31 /uL (0-25.1); HYALINE CASTS 0 /uL (0-3.1); URINE APPEARANCE CLEAR; URINE BACTERIA 820 /uL (0-1359); URINE BILIRUBIN NEGATIVE (NEGATIVE); URINE COLOR YELLOW; URINE GLUCOSE (UA) NEGATIVE (NEGATIVE); URINE KETONE NEGATIVE (NEGATIVE); URINE LEUK ESTERASE 3+ (NEGATIVE); URINE NITRITE NEGATIVE (NEGATIVE); URINE PROTEIN NEGATIVE (NEGATIVE); URINE UROBILINOGEN 0.2 mg/dL (0.2-1.0); URINE WBC 148 /uL (0-25.8)
[2024-11-02 13:28] LABS: YEAST PRESENT (NEGATIVE)
[2024-11-02 13:30] LABS: URINE RBC 19 /uL (0-23.9)
== END 2024-11-02 13:59 | disposition home or self-care (01) ==
LOC: JER 10:19
PROC: 3E0233Z Introduction of Anti-inflammatory into Muscle, Percutaneous Approach (ICD-10-PCS; principal; 2024-11-02)
DX: M54.50 Low back pain, unspecified (principal)
CPT/HCPCS: 72100-TC-FY; 81003; 84703; 87086; 96372; 99284-25